=== PATIENT | male | born 1950 | race Caucasian/White ===

== ENCOUNTER 2024-03-11 13:58 | Outpatient (AMB) | payer MEDICARE, SELFPAY ==
--- NOTE | 2024-03-11 14:07 | A.OFFPC_ITS ---
Vital Signs 03/11/24 14:12 Height 5 ft 1.61 in Weight 195 lb 8 oz BMI 36.2 BP 100/58 L Blood Pressure Location Lt brachial Position Sitting Respiration 14 Pulse 58 Pulse Source Pulse Oximeter Temp 98.1 F Temp Source Oral Pulse Oximetry (%) 96 Oxygen Delivery Method Room Air Intake Visit Reasons: New Patient, Establish Care Intake Note: New patient visit Cash Crop [employer] Required: No Allergies Penicillins Allergy (Unknown, Verified 03/11/24 14:11) Swelling Medication List - Last Reviewed 03/11/24 by Ninfa Eaton CMA aspirin 1 tab PO DAILY losartan 50 mg PO DAILY metoprolol tartrate 25 mg PO BID rosuvastatin 5 mg PO DAILY tramadol 50 mg PO BID PRN triamterene-hydrochlorothiazid 37.5-25 mg 1 tab PO DAILY triamterene-hydrochlorothiazid 37.5-25 mg 1 cap PO DAILY Tobacco use date assessed: 03/11/24 Fall risk assessment: No Falls in past year Last assessed Fall Risk: 03/11/24 Dental Screening Dental Screen Date: 03/11/24 Did you have a dental visit in the last 12 months?: Yes Did you have a dental problem in the last 6 months where you did not have access to dental care?: No Was dental information given to patient?: Patient has dentist HPI New Patient, Establish Care HPI Details Patient is a 74-year-old male with a significant past medical history of hypertension, hyperlipidemia, bradycardia, , s/p pacemaker, prostate cancer, back pain presenting today for a follow up. CV: Blood pressure today in the office is 100/58. He is on triamterene/hydrochlorothiazide 37.5/25 mg daily, losartan 50 mg daily and metoprolol 25 mg b.i.d... Cholesterol is managed with Crestor 5 mg nightly. Recently went to [facility] with concerns of shortness a breath with exertion. He states that a few months ago he started getting chest tightness with exertion. It feels like a pressure. He states when he rests it gets better. He would get a little sweaty with sob. No nausea. He would get a little lightheaded with it. He does get a cough and it has a little wheeze to it. He states he has had this cough for about 15 years ago. He did have a neg cxr. He thinks he might have a history of acid reflux and wonders if that could cause some of his chest pain but he is overall ?fine ?. -he smoked 2-3 packs a day for about 25 years. He quit smoking in his 30s. -He did have a neg cardiac cath around 6 months ago. He had a neg nuclear stress test last week. -Bps at home are lower. His low back has been painful across the back. He states if he stands for a long time it exacerbates. He states it is not currently going down his leg. He does follow with physiatry as needed. He has tried PT in the past also, with some improvement. He just had his prostate checked yesterday in [place] and states that it was perfect . He is s/p prostatectomy and hormone and radiation tx. Colonoscopy: overdue [facility] Medical History (Updated 03/11/24 @ 14:54 by Lucila Fuentes PA-C) Pacemaker Obesity, Class II, BMI 35-39.9 Surgical History (Updated 03/11/24 @ 14:18 by Ninfa Eaton CMA) H/O cardiac catheterization Family History (Updated 03/11/24 @ 14:22 by Ninfa Eaton CMA) Mother Dementia Social History Housing: Apartment Patient Tobacco Use Status: Never used Tobacco e-Cigarette/Vaping Use: Never Used Second Hand Smoke Exposure: No service: No Current occupational status: retired Cognitive needs: No Hearing needs: No Vision needs: No Questionnaire PHQ-9 Over the last 2 weeks, how often have you been bothered by any of the following problems? 1. Little interest or pleasure in doing things: not at all 2. Feeling down, depressed, or hopeless: not at all 3. Trouble falling or staying asleep, or sleeping too much: not at all 4. Feeling tired or having little energy: several days 5. Poor appetite or overeating: not at all 6. Feeling bad about yourself - or that you are a failure or have let yourself or your family down: not at all 7. Trouble concentrating on things, such as reading the newspaper or watching television: not at all 8. Moving or speaking so slowly that other people could have noticed. Or the opposite - being so fidgety or restless that you have been moving around a lot more than usual: not at all 9. Thoughts that you would be better off or of hurting yourself in some way: not at all Total score: 1 Depression Screening Interpretation: Negative Depression Screening Done: Yes 06411 - PHQ-9 Billing: Yes Source: Developed by Drs. Layo Navarro, Gloria Garza, Trace Roa and colleagues, with an educational patrick from [employer]. Thrive Questionnaire Date Thrive assessed: 03/11/24 I am a: Patient What is your living situation today?: I have a steady place to live Within the past 12 months, did the food you bought not last and you didn't have the money to get more?: Never true Within the past 12 months, did you worry whether your food would run out before you got money to buy more?: Never true Do you have trouble paying for medicines?: No Do you have trouble getting transportation to medical appointments?: No Do you have trouble paying your heating and electricity bill?: No Do you have trouble taking care of your child, family member or friend?: No Do you have trouble with day-to-day activities such as bathing, preparing meals, shopping, managing finances, etc.?: No Are you currently unemployed and looking for a job?: No Are you interested in more education?: No Please select the resources that you would like help with: None Currently or been in a relationship where the following occur: No concerns reported THRIVE Score: 0 AUDIT C Alcohol Use Questionnaire (AUDIT-C) 1. How often do you have a drink containing alcohol?: 2-3 times a week 2. How many drinks containing alcohol do you have on a typical day when you are drinking?: 1 or 2 3. How often do you have six or more drinks on one occasion?: Never Total Score: 3 BRANDON-7 AMB Questionnaire BRANDON-7 Date BRANDON - 7 assessed: 03/11/24 Feeling nervous, anxious, or on edge: 1 = Several days Not being able to stop or control worryin = Several days Worrying too much about different things: 1 = Several days Trouble relaxin = Not at all Being so restless that it is hard to sit still: 0 = Not at all Becoming easily annoyed or irritable: 0 = Not at all Feeling afraid as if something awful might happen: 0 = Not at all Total BRANDON-7 score (0-4 normal; 5-9 mild; 10-14 moderate; 15-21 severe): 3 Source: Developed by Drs. Layo Navarro, Gloria Garza, Trace Roa and colleagues, with an educational patrick from [employer]. BRANDON-7 Assessment Billing BRANDON-7 Assessment Tool: BRANDON-7 Assessment 91013 Physical exam (Primary Care) Vital Signs: Last Vital Signs Temp 98.1 F 03/11/24 14:12 Pulse 58 03/11/24 14:12 Resp 14 03/11/24 14:12 BP 100/58 L 03/11/24 14:12 Pulse Ox 96 03/11/24 14:12 Oxygen Delivery Method Room Air 03/11/24 14:12 BMI result Body Mass Index 36.2 Tobacco/Smoking Status: Tobacco use Status Tobacco use date assessed 03/11/24 03/11/24 14:20 Patient Tobacco Use Status Never used Tobacco 03/11/24 14:23 e-Cigarette/Vaping Use Never Used 03/11/24 14:23 PHQ-9: PHQ-9 Score PHQ-9: Total score 1 03/11/24 14:24 Depression Screening Interpretation: Negative Thrive Assessment: Date of Thrive Assessment Date Thrive assessed 03/11/24 03/11/24 14:23 Currently or been in a relationship where the following occur: No concerns reported Const Orientation/consciousness: patient oriented x3 HENMT Ears: hearing grossly normal bilaterally Neck Thyroid: Thyroid normal Lymphatic: no lymphadenopathy noted Resp Auscultation: clear to auscultation bilaterally Cardio Rate: regular rate Rhythm: regular rhythm Heart sounds: S1 normal heart sound present and S2 normal heart sound present GI Inspection: Yes normal to inspection Palpation (GI): Soft to palpation and Other GI palpation findings present (nontender, no cva tenderness) Auscultation: normoactive bowel sounds Rectal Exam - Male: Yes deferred Skin General skin exam: no rashes or lesions noted Neuro General: patient oriented x3, gait normal, no focal motor deficits and deep tendon reflexes 2+ bilaterally Motor exam (neuro): 5/5 motor strength present throughout Assessment and Plan Assessment & Plan (1) Chest pain: Code(s): R07.9 - Chest pain, unspecified Plan: Currently asymptomatic. Recently had a negative cardiac catheterization and nuclear stress test.? GERD. H pylori test ordered. Chest x-ray ordered. Labs ordered today. We will follow up pending test results (2) Bradycardia: Code(s): R00.1 - Bradycardia, unspecified Plan: S/p pacemaker. We will DC the metoprolol today given the lower blood pressure readings. (3) MOODY (dyspnea on exertion): Code(s): R06.09 - Other forms of dyspnea Plan: As above. Labs ordered. Chest x-ray and chest CT ordered. (4) Chronic cough: Code(s): R05.3 - Chronic cough Plan: Referral to pulmonology. Imaging ordered. (5) Former smoker: Code(s): Z87.891 - Personal history of nicotine dependence Plan: As above (6) HTN (hypertension): Code(s): I10 - Essential (primary) hypertension Plan: DC metoprolol. Continue other regimen. Orders: Orders Complete Blood Count Auto Diff Today R00.1 - Bradycardia, unspecified, R06.09 - Other forms of dyspnea, R07.9 - Chest pain, unspecified, Z95.0 - Presence of cardiac pacemaker Ferritin Today R00.1 - Bradycardia, unspecified, R06.09 - Other forms of dyspnea, R07.9 - Chest pain, unspecified, Z95.0 - Presence of cardiac pacemaker D Dimer High Sensitivity Today R00.1 - Bradycardia, unspecified, R06.09 - Other forms of dyspnea, R07.9 - Chest pain, unspecified, Z95.0 - Presence of cardiac pacemaker CT chest wo IV con Today R05.3 - Chronic cough, R06.09 - Other forms of dyspnea H pylori Ag Stool Today R05.3 - Chronic cough Comprehensive [place]. Panel Fast Today R00.1 - Bradycardia, unspecified, R06.09 - Other forms of dyspnea, R07.9 - Chest pain, unspecified, Z95.0 - Presence of cardiac pacemaker IRON PROFILE Today R00.1 - Bradycardia, unspecified, R06.09 - Other forms of dyspnea, R07.9 - Chest pain, unspecified, Z95.0 - Presence of cardiac pacemaker Vitamin B12 and Folate Today R00.1 - Bradycardia, unspecified, R06.09 - Other forms of dyspnea, R07.9 - Chest pain, unspecified, Z95.0 - Presence of cardiac pacemaker Lipid Panel Today R00.1 - Bradycardia, unspecified, R06.09 - Other forms of dyspnea, R07.9 - Chest pain, unspecified, Z95.0 - Presence of cardiac pacemaker TSH reflex Free T4 Today R00.1 - Bradycardia, unspecified, R06.09 - Other forms of dyspnea, R07.9 - Chest pain, unspecified, Z95.0 - Presence of cardiac pacemaker XR chest 2V Today R06.09 - Other forms of dyspnea, R07.9 - Chest pain, unspecified Referrals Pulmonology Referral R05.3 - Chronic cough, R06.09 - Other forms of dyspnea, Z87.891 - Personal history of nicotine dependence Gastroenterology Referral K21.9 - Gastro-esophageal reflux disease without esophagitis, Z12.11 - Encounter for screening for malignant neoplasm of colon Medications: Discontinued triamterene-hydrochlorothiazid 37.5-25 mg Discontinued Reason: Duplicate 1 tab PO DAILY 90 tabs 3RF Coding Level of Care Code Est Pt Level 4 (70799) Complex EM visit Add On G2211 Diagnoses Chest pain R07.9 Bradycardia R00.1 MOODY (dyspnea on exertion) R06.09 Chronic cough R05.3 Former smoker Z87.891 HTN (hypertension) I10 Additional Codes BRANDON-7 Assessment Billing - BRANDON-7 Assessment Tool: BRANDON-7 Assessment [id number] ([id number])
[2024-03-11 14:12] VITALS: BP 100/58; PULSE 58; RESP 14; TEMP 36.7; O2SAT 96; BMI 36.2
== END 2024-03-11 16:28 | disposition home or self-care (01) ==
PROVIDERS: PCP Physician Assistant; Visit Provider Physician Assistant
DX: R07.9 Chest pain, unspecified (principal); R00.1 Bradycardia, unspecified; R06.09 Other forms of dyspnea; R05.3 Chronic cough; Z87.891 Personal history of nicotine dependence; I10 Essential (primary) hypertension

== ENCOUNTER → 2024-03-11 13:58 | Outpatient (BNVA) | payer MEDICARE, SELFPAY | PROVIDERS: PCP Physician Assistant; Visit Provider Physician Assistant | DX: R07.9 Chest pain, unspecified (principal); R00.1 Bradycardia, unspecified; R06.09 Other forms of dyspnea; R05.3 Chronic cough; I10 Essential (primary) hypertension; Z87.891 Personal history of nicotine dependence | CPT/HCPCS: 96127; 99212 ==

== ENCOUNTER 2024-03-25 13:33 | Outpatient (AMB) | payer MEDICARE, SELFPAY ==
--- NOTE | 2024-03-25 13:26 | A.OFFVIS_ITS ---
Vital Signs 03/25/24 13:41 Height 5 ft 1.61 in Weight 195 lb 8 oz BMI 36.2 BP 108/54 L Blood Pressure Location Lt brachial Position Sitting Pulse 46 L Pulse Source Pulse Oximeter Pulse Oximetry (%) 98 Oxygen Delivery Method Room Air Intake Visit Reasons: Chronic cough Allergies Penicillins Allergy (Unknown, Verified 03/25/24 13:44) Swelling HPI HPI Chronic cough: Details: Keyur is a pleasant 74 year old male, former smoker, quit in 30s with 30 pyh with underlying HTN, HLD, bradycardia s/p pacer x 2 years and s/p prostatectomy 2019 hormone and radiation tx. He was referred by PCP for pulmonary evaluation. He reports mild respiratory symptoms with chronic productive cough in the morning only, with occasional chest tightness and dyspnea on exertion. He has been evaluated in the past by [facility] with reportedly unremarkable RHC and stress test. Today HR was 58 with recheck, states pacer is set to 60bpm and had recent device check within the last three months. Follows closely with cardiology. PCP entered order for Chest CT. Denies h/o asthma. Denies seasonal allergies. Denies any occupational exposures. [facility] Medical History (Updated 03/11/24 @ 14:54 by Lucila Fuentes PA-C) Pacemaker Obesity, Class II, BMI 35-39.9 Surgical History (Updated 03/11/24 @ 14:18 by Ninfa Eaton CMA) H/O cardiac catheterization Family History (Updated 03/11/24 @ 14:22 by Ninfa Eaton CMA) Mother Dementia Social History (Updated 03/25/24 @ 13:44 by Ana Benson CMA) Housing: Apartment Patient Tobacco Use Status: Former Tobacco user e-Cigarette/Vaping Use: Never Used Second Hand Smoke Exposure: No service: No Current occupational status: retired Cognitive needs: No Hearing needs: No Vision needs: No Review of Systems Const Denies chills, Denies excessive sweating, Denies fever(s), Denies headache(s) and Denies night sweats Eyes Denies dry eyes, Denies irritation and Denies itchy eyes ENT Reports Normal hearing present, Denies headache(s), Denies nasal congestion, Denies nasal discharge, Denies post nasal drip and Denies sore throat Card Denies chest pain, Denies chest pain at rest, Denies chest pain with activity, Denies claudication, Denies leg edema, Denies orthopnea and Denies paroxysmal nocturnal dyspnea Resp Denies chest congestion, Denies excessive phlegm production, Denies pain on inspiration, Denies pain with cough, Denies stridor and Denies wheezing Musc Denies myalgias Neuro Reports Normal hearing present and Denies headache(s) Endo Denies excessive sweating Efe/Lymph Denies lymphadenopathy Aller/Immun Denies itchy eyes, Denies seasonal rhinorrhea and Denies wheezing Physical Exam Vital Signs: Last Vital Signs Pulse 46 L 03/25/24 13:41 BP 108/54 L 03/25/24 13:41 Pulse Ox 98 03/25/24 13:41 Oxygen Delivery Method Room Air 03/25/24 13:41 BMI result Body Mass Index 36.2 Const General: cooperative, healthy appearing, comfortable, no acute distress, well developed and alert Nutritional Appearance: obese Orientation/consciousness: patient oriented x3 Limitations: no limitations HEENT Head: Yes normal to inspection, Yes normocephalic and Yes atraumatic Ears: hearing grossly normal bilaterally and external ears normal Eyes General: appearance normal, both eyes and all related structures Eyelids: Yes eyelids normal Sclerae: sclerae normal EOM: EOMs intact bilaterally Neck Neck: Yes normal visual inspection and Yes no lymphadenopathy Lymphatic: no lymphadenopathy noted Chest Chest palpation & inspection: normal inspection of the chest Resp Effort & Inspection: normal respiratory effort, able to speak in complete sentences, no audible wheezes, no cough, no stridor, not tachypneic, no tripod positioning and no use of accessory muscles Auscultation: clear to auscultation bilaterally Cardio Jugular venous distension: no JVD Rate: regular rate Rhythm: regular rhythm Skin Other: warm, dry General skin exam: no rashes or lesions noted Neuro General: patient oriented x3 Cranial nerves: Yes Normal hearing present Cognition (Neuro): normal cognition Gait exam (Neuro): Normal gait present Extrem General: Yes normal to inspection, Yes capillary refill normal, Yes no clubbing, cyanosis or edema and Yes no pedal edema Psych Appearance: grossly normal and well kempt Speech and movement: Normal speech and movement present and Clear speech present Affect: normal affect Attitude: cooperative Thought process: Normal thought process present Thought content: Normal thought content present Insight: Good insight present (Psych) Judgement: Good judgement present (Psych) Assessment & Plan Assessment & Plan (1) Chronic cough: Code(s): R05.3 - Chronic cough Category: Medical (2) Former smoker: Code(s): Z87.891 - Personal history of nicotine dependence Category: Social Hx (3) MOODY (dyspnea on exertion): Code(s): R06.09 - Other forms of dyspnea Category: Medical Plan Will send for PFT to assess for any obstructive defect. PCP entered order for chest CT will review when resulted. Discussed empirically trialing albuterol MDI PRN however patient declined. All questions were answered and patient is in agreement of plan. Will follow up to review results or sooner if needed. Orders: Orders PFT pulmonary function test Today R05.3 - Chronic cough, R06.09 - Other forms of dyspnea Coding Level of Care Code New Pt Level 4 (05650) Diagnoses Chronic cough R05.3 Former smoker Z87.891 MOODY (dyspnea on exertion) R06.09
[2024-03-25 13:41] VITALS: BP 108/54; PULSE 46; O2SAT 98; BMI 36.2
== END 2024-03-25 14:08 | disposition home or self-care (01) ==
PROVIDERS: PCP Physician Assistant; Referring Provider Physician Assistant; Visit Provider Nurse Practitioner Family
DX: R05.3 Chronic cough (principal); Z87.891 Personal history of nicotine dependence; R06.09 Other forms of dyspnea
CPT/HCPCS: 99204

== ENCOUNTER → 2024-03-25 13:33 | Outpatient (BNVA) | payer MEDICARE, SELFPAY | PROVIDERS: PCP Physician Assistant; Referring Provider Physician Assistant; Visit Provider Nurse Practitioner Family | DX: R05.3 Chronic cough (principal); R06.09 Other forms of dyspnea; Z87.891 Personal history of nicotine dependence | CPT/HCPCS: 99202 ==

== ENCOUNTER 2024-03-30 09:57 | Outpatient (REF) | payer MEDICARE, SELFPAY ==
[2024-03-30 10:23] LABS: MANUAL DIFF FLAG NO
[2024-03-30 11:19] LABS: Basophils Absolute Auto 0.1 X10*3/uL (0.0-0.2); Basophils Percent Auto 1.9 % (0-2); Eosinophils Absolute Auto 0.2 X10*3/uL (0.0-0.4); Eosinophils Percent Auto 5.4 % (0-4); Hematocrit 37.1 % (42.0-52.0); Imm Gran Abs Auto 0.01 X10*3/uL (0.00-0.03); Imm Gran Pct Auto 0.3 % (0.0-0.4); Lymphocytes Absolute Auto 0.8 X10*3/uL (1.2-4.9); Lymphocytes Percent Auto 20.4 % (20-40); Mean Corpuscular Hemoglobin 32.7 pg (27.0-33.0); Mean Corpuscular Volume 93.2 fL (80.0-98.0); Mean Platelet Volume 10.2 fL (9.4-12.4); Monocytes Absolute Auto 0.5 X10*3/uL (0.1-1.2); Monocytes Percent Auto 12.4 % (2-11); Neutrophils Absolute Auto 2.2 x10*3/uL (2.0-8.3); Neutrophils Percent Auto 59.6 % (45-73); Platelet Count 221 X10*3/uL (160-400); Red Blood Count 3.98 X10*6/uL (4.60-5.80); Red Cell Distribution Width 11.5 % (11.0-16.0); White Blood Count 3.7 X10*3/uL (4.8-10.8)
[2024-03-30 11:20] LABS: D Dimer High Sensitivity < 150 NG/ML
[2024-03-30 12:02] LABS: Alanine Aminotransferase 20 U/L (0-40); Albumin Level 4.5 g/dL (3.5-5.0); Alkaline Phosphatase 38 U/L (39-117); Anion Gap 12 (12-20); Aspartate Amino Transferase 26 U/L (5-37); Bilirubin Total 0.9 mg/dL (0.0-1.0); Blood Urea Nitrogen 18 mg/dL (9-16); Carbon Dioxide 26 mmol/L (22-29); Chloride 104 mmol/L (96-108); Cholesterol 178 mg/dL (<200); Estimated Glomerular Filt Rate > 60; Ferritin 434 ng/mL (20-250); Glucose Fasting 95 mg/dL (60-99); HDL Cholesterol 78 mg/dL (>40); Iron 107 mcg/dL (45-160); LDL Cholesterol Calculated 88 mg/dL (<100); Percent Iron Saturation 38 % (15-50); Potassium 4.2 mmol/L (3.3-5.1); Sodium 138 mmol/L (135-145); TSH reflex Free T4 0.81 uIU/mL (0.32-4.0); Total Iron Binding Capacity 279 mcg/dL (228-428); Total Protein 7.3 g/dL (6.5-8.0); Triglycerides 62 mg/dL (<150); Unsaturated Iron Binding 172 ug/dL
[2024-03-30 12:30] LABS: Folate 10.9 ng/mL (> or = 4.0); Vitamin B12 426 pg/mL (200-900)
== END 2024-03-30 09:58 | disposition home or self-care (01) ==
LOC: HO.LAB 09:57
PROVIDERS: PCP Physician Assistant; Visit Provider Physician Assistant
DX: R06.09 Other forms of dyspnea (principal); R00.1 Bradycardia, unspecified; R07.9 Chest pain, unspecified; Z95.0 Presence of cardiac pacemaker
CPT/HCPCS: 36415; 80053; 80061; 82607; 82728; 82746; 83540; 84443; 85025; 85379

== ENCOUNTER 2024-04-20 10:20 | Outpatient (REF) | payer MEDICARE, SELFPAY ==
--- NOTE | ~2024-04-20 | US_ITS ---
EXAMINATION: US ABDOMEN LIMITED CLINICAL INFORMATION: Abnormal LFTs. COMPARISON: None available. TECHNIQUE: Real-time imaging of the right upper quadrant abdominal viscera. FINDINGS: PANCREAS: Not well seen due to overlying bowel gas. LIVER: Evaluation limited due to overlying bowel gas. Normal hepatic size. The liver contour is normal. Increased parenchymal echogenicity. No focal hepatic lesion. There is no intrahepatic biliary duct dilatation seen. GALLBLADDER: Unremarkable. The gallbladder is physiologically distended without evidence of stones, sludge, polyps, wall thickening or pericholecystic fluid. COMMON BILE DUCT: Normal in caliber measuring 0.3 cm in diameter. RIGHT KIDNEY: Lower pole probable cyst measuring up to 0.4 cm. Findings are not clinically significant and no dedicated follow-up imaging is recommended. No hydronephrosis or renal calculi. The kidney measures 10.6 cm in maximum dimension. FREE FLUID: None. US/US abdomen limited IMPRESSION: 1. Increased hepatic parenchymal echogenicity, which can be seen in the setting of fatty infiltration. Underlying hepatocellular disease cannot be excluded. No hepatic parenchymal lesion or biliary ductal dilatation. 2. Pancreas not well seen due to overlying bowel gas. Electronically signed by: Khari Leung MD 05/01/2024 11:23 AM [facility]
== END 2024-04-20 10:21 | disposition home or self-care (01) ==
LOC: HO.HMGCX 10:20
PROVIDERS: PCP Physician Assistant; Visit Provider Physician Assistant
DX: R79.89 Other specified abnormal findings of blood chemistry (principal)
CPT/HCPCS: 76705

== ENCOUNTER 2024-04-28 13:04 | Outpatient (REF) | payer MEDICARE, SELFPAY ==
[2024-04-28 08:59] VITALS: PULSE 61; RESP 16; O2SAT 98
--- NOTE | 2024-04-28 13:07 | PFT_ITS ---
Flows: FEV1: 97 % of predicted at 2.41 L FVC: 93 % of predicted at 3.01 L FEV1/FVC: 80 % Bronchodilator response: Present in small to medium airways only Volumes: Total lung capacity: 85 % of predicted at 4.76 L Residual volume: 80 % of predicted at 1.65 L Slow vital capacity: 89 % of predicted at 3.11 L Expiratory reserve volume: 0 % of predicted at 0 L Diffusion capacity: Normal Impression: No obstructive or restrictive ventilatory defect. Bronchodilator response present in small to medium airways only. Decreased expiratory reserve volume suggests extrathoracic restriction likely secondary to abdominal obesity. MTDD
== END 2024-04-28 13:05 | disposition home or self-care (01) ==
LOC: HO.RESP 13:04
PROVIDERS: PCP Physician Assistant; Visit Provider Nurse Practitioner Family
DX: R06.09 Other forms of dyspnea (principal); R05.3 Chronic cough
CPT/HCPCS: 94010; 94640; 94727; 94729

== ENCOUNTER → 2024-04-28 13:07 | Outpatient (BNV) | payer MEDICARE, SELFPAY | PROVIDERS: PCP Physician Assistant; Visit Provider Internal Medicine Pulmonary Disease | DX: R06.09 Other forms of dyspnea (principal); R05.3 Chronic cough | CPT/HCPCS: 94060; 94727; 94729 ==

== ENCOUNTER 2024-05-01 07:16 | Outpatient (REF) | payer MEDICARE, SELFPAY ==
--- NOTE | ~2024-05-01 | CT_ITS ---
EXAMINATION: CT CHEST WITHOUT CONTRAST CLINICAL INFORMATION: Dyspnea on exertion. Chronic cough. COMPARISON: None available. TECHNIQUE: Multidetector volumetric CT imaging of the chest was done. Axial MIP volume rendering provided. Sagittal and coronal reformatted images were obtained. This CT examination was performed using dose optimization techniques as appropriate, variously including the following: *Automated exposure control *Adjustment of mA and/or kV according to patient size (this includes techniques or standardized protocols for targeted exams where dose is matched to indication/reason for exam; i.e. extremities or head) *Use of iterative reconstruction technique DLP: 178 mGy-cm FINDINGS: MANIPULATIVE THERAPY SPECIALIST: Unremarkable. LUNGS: Right lower lobe posterior subpleural nodule measuring 0.5 x 0.3 cm (axial image 326/604). More anterior right lower lobe ground-glass nodule measuring 0.6 x 0.5 cm (axial image 378/604). Lateral right lower lobe 0.3 x 0.2 cm nodule (axial image 420/604). No large pulmonary mass. No confluent airspace consolidation. The central airways are patent. No bronchial wall thickening or inflammatory change. MEDIASTINUM: No cardiomegaly. No pericardial effusion. No thoracic aortic dilatation. Left-sided pacer leads terminating in the right heart. No superior mediastinal or hilar lymphadenopathy. Unremarkable thyroid. CORONARY ARTERY CALCIFICATION: Present. PLEURA: There is no pleural effusion. No pleural mass or thickening. CHEST WALL/AXILLA: No lymphadenopathy. UPPER ABDOMEN: Unremarkable. OSSEOUS STRUCTURES: Unremarkable. CT/CT chest wo IV con IMPRESSION: 1. Solid and subsolid pulmonary nodules measuring up to 0.55 cm. According to the UPDATED 2017 Fleischner Society recommendations, the advised follow-up imaging for multiple subsolid nodules, the largest of which measures <6 mm, is: 2. CT at 3-6 months. If stable, consider CT at 2 and 4 years. 3. No large pulmonary mass or confluent airspace consolidation. 4. No lymphadenopathy. Fleischner guidelines were followed. Electronically signed by: Khari Leung MD 05/01/2024 11:23 AM [facility]
== END 2024-05-01 07:17 | disposition home or self-care (01) ==
LOC: HO.CT 07:16
PROVIDERS: PCP Physician Assistant; Visit Provider Physician Assistant
DX: R06.09 Other forms of dyspnea (principal); R05.3 Chronic cough
CPT/HCPCS: 71250

== ENCOUNTER 2024-06-01 12:30 | Outpatient (REF) | payer MEDICARE, SELFPAY | END 2024-06-01 12:31 | disposition home or self-care (01) | LOC: HO.LNP 12:30 | PROVIDERS: Visit Provider Physician Assistant | DX: R05.3 Chronic cough (principal) | CPT/HCPCS: 87338 ==

== ENCOUNTER 2024-10-26 08:56 | Outpatient (REF) | payer MEDICARE, SELFPAY ==
--- NOTE | ~2024-10-26 | CT_ITS ---
CLINICAL HISTORY: R91.8 - Other nonspecific abnormal finding of lung field CT chest without contrast Comparison: CT/DE/SR - CT CHEST WO IV CON - 05/01/24 07:31 EST Findings: No cardiomegaly. Trace pericardial effusion. No mediastinal adenopathy. Moderate atherosclerotic disease of the coronary arteries. No discrete thyroid lesion. Stable 5 mm subpleural ovoid right lower lobe nodule on axial 70. Reference axial image 82, there is a stable 6 mm right lower lobe nodule, versus axial 376 on the comparison study. Stable 5 mm predominantly ground-glass nodule of the periphery of the right lung base, axial 92. No new or increasing nodule. No pneumothorax or effusion. Visualized upper abdomen is unremarkable. No acute osseous finding. Impression: Stable right lower lobe nodules. Twelve month follow-up recommended. This document has been electronically signed by: Arden Gordon MD on 10/26/2024 11:46:19
--- OUTSIDE RECORDS SUMMARY | 2024-10-26 09:27 | XMS_ITS | Clinical Summary ---
Author Organization [facility] Facility Address [address] [address] Care Team Providers Care Field Service Analyst Name Role Phone Unavailable Primary Care Provider Unavailabl e Social History Tobacco Use Types Packs/Day Years Used Date Smoking Tobacco: Never Assessed Sex and Gender Information Value Date Recorded Sex Assigned at Not on file Legal Sex Male 3:02 PM EST Gender Identity Not on file Sexual Orientation Not on file Plan of Treatment Health Maintenance Due Date Last Done Comments Colorectal Cancer Screening: Annual FOBT 02/18/2001 Colorectal Cancer Screening: Colonoscopy 02/18/2001 Colorectal Cancer Screening: Sigmoidoscopy 02/18/2001 Pneumococcal Vaccine: 50+ Ye ars (1 of 1 - PCV) 02/18/2002 Influenza Vaccine (Season Ended) 2025 Hepatitis B Vaccine Aged Out No longe r eligible based on patient's age to complete this topic Insurance [employer] Commercial
--- OUTSIDE RECORDS SUMMARY | 2024-10-26 09:27 | XMS_ITS | Clinical Summary ---
Author Organization [address] [facility] Address [address] [place] [address] Phone Care Team Providers Care Lure Maker Name Role Phone Lucila Fuentes Primary Care Provider [phone] Encounters Date Type Department Care Team Description 09/25/2024 8:35 PM EDT Ancillary Procedure [facility] - [facility] [address] [facility] [address] [place] [phone] 08/26/2024 7:25 PM EST Ancillary Procedure [facility] - [facility] [address] [facility] [address] [place] [phone] from Last 3 Months Surgical History Surgery Date Site/Laterality Comments PROSTATECTOMY PROCEDURE: PROSTATECTOMY Medical History Medical History Date Comments Hypertension 06/15/2020 DX:Hypertension HLD (hyperlipidemia) 06/15/2020 DX:HLD (hyp erlipidemia) Prostate CA (CMS/HCC V24, CMS/HCC V28) 0 DX:Prostate CA (HCC); COMMENT: S/p prostectomy; following with urology. Dr Pak in [place] Malignant neoplasm of prosta te (CMS/HCC V24, CMS/HCC V28) DX:Malignant neoplasm of pro state (HCC) Family History Medical History Relation Name Comments No Known Problems Father Dementia Mother Diabetes Other Relation Name Status Comments Father Mother Other Social History Tobacco Use Types Packs/Day Years Used Date Smoking Tobacco: Former Cigarettes Smokeless Tobacco: Never Alcohol Use Standard Drinks/Week Comments Yes 0 (1 standard drink = 0.6 oz pur e alcohol) Sex and Gender Information Value Date Recorded Sex Assigned at Not on file Legal Sex Male 2:19 AM EST Gender Identity Not on file Sexual Orientation Not on file Obstetrics History Last Filed Vital Signs Vital Sign Reading Time Taken Comments Blood Pressure 137/84 02/27/2024 1:46 PM EDT Sit ting L Arm Pulse 60 02/27/2024 1:46 PM EDT Temperature - - Respiratory Rate - - Oxygen Saturation - - Inhaled Oxygen Concentration - - Weight 88 kg (194 lb) 02/27/2024 1:46 PM EDT Height 160 cm (5' 3 ) 02/27/2024 1:46 PM EDT Body Mass Index 34.37 02/27/2024 1:46 PM EDT Plan of Treatment Upcoming Encounters Date Type Department Care Team (Late st Contact Info) Description 03/01/2025 11:00 AM EDT Ancillary Procedure [facility] - [address] [facility] [address] [place] [phone] Health Maintenance Due Date Last Done Comments Zoster Vaccines (1 of 2) 04/27/2012 03/02/2012 Abdominal Aortic Aneurysm (AAA) Screen 06/02/2022 Cholesterol Screening (Lipid Panel) 06/02/2022 Colorectal Cancer Screening: Colonoscopy 06/02/2022 Depression Screening 06/02/2022 Falls Risk Assessment 06/02/2022 Hepatitis C Screening 06/02/2022 Medicare Annual Wellness Visit 06/02/2022 Social Influencers of Health Screening 06/02/2022 Hypertension/CHF/CAD Annual BMP Blood Test 01/01/2024 12/31/2022, 03/26/2022, 11/27/2021, Additional history exists DTaP,Tdap,and Td Vaccines (2 - Td or Tdap) 10/04/2024 10/04/2014 COVID-19 Vaccine (4 - Mixed Product risk season) 2024 05/02/2024, 09/19/2020, 08/22/2020 Pneumococcal Vaccine: 50+ Years Completed 03/12/2020, 04/13/2019 Influenza Vaccine Completed 05/02/2024, , 03/24/2022, Additional history exists RSV Immunization Adult Patients Completed 05/02/2024 HIB Vaccines Aged Out No longer eligi ble based on patient's age to complete this topic HPV Vaccines Aged Out No longer eligi ble based on patient's age to complete this topic Hepatitis A Vaccines Aged Out No long er eligible based on patient's age to complete this topic Hepatitis B Vaccines Aged Out No long er eligible based on patient's age to complete this topic IPV Vaccines Aged Out No longer eligi ble based on patient's age to complete this topic MMR Vaccines Aged Out No longer eligi ble based on patient's age to complete this topic Meningococcal ACWY Vaccine Aged Out N o longer eligible based on patient's age to complete this topic Meningococcal B Vaccine Aged Out No l onger eligible based on patient's age to complete this topic RSV Immunization Patients Under 20 months Aged Out No longer eligible based on patient's age to complete this topic Varicella Vaccines Aged Out No longer eligible based on patient's age to complete this topic Medical Devices Implanted Type Area Rate Setter Device Identifier Shelf Expiration Date Model / Serial / Lot David Kavita 8 Carlos [id number] Implanted:01/22 (Quantity not on file) Cardiac Pacemaker [employer] EDORA 8 CARLOS / [id number] / Procedures Procedure Name Priority Date/Time Associated Diagnosis Comments CARDIAC DEVICE CHECK- REMOTE- MURJ Routine 09/25/2024 8:31 PM EDT CARDIAC DEVICE CHECK- REMOTE- MURJ Routine 08/26/2024 7:20 PM EST from Last 3 Months Results * Cardiac device check - Remote- MURJ (09/25/2024 8:31 PM EDT) Only the most recent of2 resultswithin the time period is included. Date Time Interrogation Session [id number] CV DEVICE CHECK Type Interrogation Session RemoteScheduled CV DEVICE CHECK Implantable Pulse Generator Rate Setter BIO CV DEVICE CHECK Implantable Pulse Generator Type IPG CV DEVICE CHECK Implantable Pulse Generator Model Edora 8 CARLOS CV DEVICE CHECK Implantable Pulse Generator Serial Number [id number] CV DEVICE CHECK Implantable Pulse Generator Implant Date 20230131 CV DEVICE CHECK Battery Remaining Percentage 90.00 CV DEVICE CHECK Battery Status Middle of Service CV DEVICE CHECK Jan Statistic RA Percent Paced 88.00 CV DEVICE CHECK Jan Statistic RV Percent Paced 1.00 CV DEVICE CHECK Atrial Tachy Statistic AT/AF [place] Percent 0.00 CV DEVICE CHECK Lead Channel Sensing Intrinsic Amplitude 1.700 CV DEVICE CHECK Lead Channel Impedance Value 566 CV DEVICE CHECK Lead Channel Pacing Threshold Amplitude 0.900 CV DEVICE CHECK Lead Channel Pacing Threshold Pulse Width 0.4 CV DEVICE CHECK Lead Channel RA Pacing Threshold Date 2024-02-25 CV DEVICE CHECK Lead Channel Setting Pacing Amplitude 1.800 CV DEVICE CHECK Lead Channel Setting Pacing Pulse Width 0.4 CV DEVICE CHECK Lead Channel Sensing Intrinsic Amplitude 9.600 CV DEVICE CHECK Lead Channel Impedance Value 332 CV DEVICE CHECK Lead Channel Pacing Threshold Amplitude 0.600 CV DEVICE CHECK Lead Channel Pacing Threshold Pulse Width 0.4 CV DEVICE CHECK Lead Channel RV Pacing Threshold Date 2024-02-25 CV DEVICE CHECK Lead Channel Setting Pacing Amplitude 2.000 CV DEVICE CHECK Lead Channel Setting Pacing Pulse Width 0.4 CV DEVICE CHECK Jan Setting Mode (NBG Code) DDDR CV DEVICE CHECK Jan Setting Lower Rate Limit 60 CV DEVICE CHECK Jan Setting AT Mode Switch Rate 160 CV DEVICE CHECK Jan Setting Maximum Tracking Rate 130 CV DEVICE CHECK Jan Setting Maximum Sensor Rate 120 CV DEVICE CHECK Jan Setting PAV Delay 200 CV DEVICE CHECK Jan Setting RADHA Delay 170 CV DEVICE CHECK Date of Service 2024-03-07 CV DEVICE CHECK Anatomical Region Laterality Modality Device Interroga tion 02/25/2024 1:10 AM EDT Impressions 03/03/2024 3:38 PM EDT Normal Remote: No Events ?? Normal Remote: No Events * Normal Device Function * Alerts or events: None * Battery: Battery is at 90%, * Sensing, impedance and thresholds reviewed * Programmed parameters reviewed * Presenting rhythm reviewed * Heart Rate Histograms reviewed * No significant changes noted Narrative Procedure Note Carmen Loo MD - 09/25/2024 IMPRESSION: Normal Remote: No Events Normal Remote: No Events * Normal Device Function * Alerts or events: None * Battery: Battery is at 90%, * Sensing, impedance and thresholds reviewed * Programmed parameters reviewed * Presenting rhythm reviewed * Heart Rate Histograms reviewed * No significant changes noted Result [facility] Carmen Loo MD CV IMPLANTABLE CARDIAC DEV ICE PROCEDURES Final Result from Last 3 Months Insurance MEDICARE [facility] Care Teams Lure Maker Relationship Specialty Start Date End Date Lucila Fuentes PA [facility] [place] [address] PCP - General 12/06/22
== END 2024-10-26 08:57 | disposition home or self-care (01) ==
LOC: HO.CT 08:56
PROVIDERS: PCP Physician Assistant; Visit Provider Physician Assistant
DX: R91.8 Other nonspecific abnormal finding of lung field (principal)
CPT/HCPCS: 71250

== ENCOUNTER → 2024-10-26 08:57 | Outpatient (BNV) | payer MEDICARE, SELFPAY | PROVIDERS: PCP Physician Assistant; Visit Provider Radiology Vascular & Interventional Radiology | DX: R91.8 Other nonspecific abnormal finding of lung field (principal) | CPT/HCPCS: 71250 ==